=== PATIENT | female | born 1980 | race Caucasian/White ===

== ENCOUNTER 2017-11-16 12:08 | Outpatient (CLI) | payer SELFPAY ==
--- NOTE | 2017-11-16 13:46 | Ultrasound Report ---
ULTRASOUND BIOPHYSICAL PROFILE: History: Nonreactive NST Technique: Transabdominal ultrasound with Doppler interrogation. 2 - breathing movements 2 - movements 2 - posture and tone 2 - Qualitative amniotic fluid volume 8 - TOTAL SCORE OF POSSIBLE 8 Heart Rate (bpm) 129
--- NOTE | 2017-11-16 13:47 | Ultrasound Report ---
ULTRASOUND OB LIMITED History: Nonreactive NST Technique: Transabdominal ultrasound with Doppler interrogation. Gestation: Single Position: Cephalic Amniotic Fluid: Normal CIRO = 15.5 cm Heart Rate: 129 BPM
[2017-11-16 14:27] VITALS: BP 136/69
== END 2017-11-16 14:35 | disposition home or self-care (01) ==
LOC: TRG 12:08 → LD 12:09 → INTOOBSV 12:09 → UNDOADMOB 12:09 → TRG 14:21
PROVIDERS: ATTEND Obstetrics & Gynecology
DX: O47.1 False labor at or after 37 completed weeks of gestation (principal); Z3A.38 38 weeks gestation of pregnancy
CPT/HCPCS: 59025; 76815; 76819

== ENCOUNTER 2017-11-24 18:25 | Inpatient (IN) | payer OTHER ==
[2017-11-24 19:44] LABS: Hematocrit 37.3 % (30.3-42.9); Hemoglobin 12.8 gm/dl (10.1-14.3); Mean Corpuscular HGB Conc 34 % (30-34); Mean Corpuscular Hemoglobin 30 pg (28-32); Mean Corpuscular Volume 87 fl (79-97); Platelet Count 316 K/mm3 (140-440); Red Blood Count 4.31 M/mm3 (3.65-5.03); Red Cell Distribution Width 14.1 % (13.2-15.2)
[2017-11-24 20:01] LABS: Alanine Aminotransferase 7 units/L (7-56)
[2017-11-24 20:20] LABS: Bacteria,Urine 1+ /HPF (Negative); Bilirubin,Urine NEG (Negative); Blood,Urine SM (Negative); Color,Urine Yellow (Yellow); Urobilinogen,Urine < 2.0 mg/dL (<2.0)
[2017-11-24 20:28] LABS: Uric Acid 7.2 mg/dL (3.5-7.6)
[2017-11-24] MEDS ORDERED: BRETHINE SUB-Q PRN (22:17)
[2017-11-24] MEDS ORDERED: ZOFRAN IV PRN (22:17)
[2017-11-24] MEDS ORDERED: BRETHINE IVP PRN (22:17)
[2017-11-24] MEDS ORDERED: MINERAL OIL PO PRN (22:17)
[2017-11-24] MEDS ORDERED: SUBLIMAZE IV PRN (22:17)
[2017-11-24] MEDS ORDERED: NARCAN 0.4 MG/1 ML IV PRN (22:17)
[2017-11-24] MEDS ORDERED: XYLOCAINE 2% INFILTRATI ONE (22:17)
[2017-11-24] MEDS ORDERED: PHENERGAN PO PRN (22:17)
--- NOTE | 2017-11-24 22:28 | History and Physical Report ---
History of Present Illness Date of examination: 11/24/17 Date of admission: 11/24/17 21:11 Chief complaint: Headache, high blood pressure, and regular contractions History of present illness: 37 yo Fe SACHI 11/28/2017 (LMP), 39 weeks 3 days presents to [facility] from office with c/o headache x 3days (not relieved by tylenol), elevated blood pressure, blurry vision and regular contractions. O positive, Rubella immune, GBS negative. Pt initiated care at [facility] at 13w2d. Maternal Obesity, Failed 1hr GTT (3hr GTT wnl). History of UTI tx'd during / All previous pregnancies term. Proven pelvis 8lbs. Past History Past Medical History: other (UTI) Past Surgical History: no surgical history [employer] History: denies: abnormal PAP smear, chlamydia, gonorrhea, hepatitis B, hepatitis C, herpes, HIV, syphilis, trichomonas Family/Genetic History: diabetes (daughter) Social history: no significant social history, single, lives with family, full code. denies: smoking, alcohol abuse, prescription drug abuse, IV drug use - Obstetrical History Expected Date of Delivery: 11/28/17 Actual Gestation: 39 Week(s) 4 Day(s) : 8 Para: 7 Hx # Term Pregnancies: 7 Number of Pregnancies: 0 Spontaneous Abortions: 0 Induced : 0 Number of Living Children: 7 Medications and Allergies Allergies Allergy/AdvReac Type Severity Reaction Status Date / Time No Known Allergies Allergy Verified 11/24/17 19:15 Home Medications Medication Instructions Recorded Confirmed Last Taken Type Vit-Fe Fumar-FA [ 1 tab PO QDAY 11/16/17 11/25/17 11/15/17 09: 00 History Vitamin] 1 Active Meds: Active Medications Ephedrine Sulfate (Ephedrine Sulfate) 10 mg IV Q2M PRN PRN Reason: Hypotension Fentanyl (Sublimaze) 100 mcg IV Q2H PRN PRN Reason: Labor Pain Lactated Ringer's (Lactated Ringers) 1,000 mls @ 125 mls/hr IV DIRECT SALIMA Oxytocin/Sodium Chloride (Pitocin/Ns 20 Unit/1000ml Drip) 20 units in 1,000 mls @ 125 mls/hr IV DIRECT SALIMA Oxytocin/Sodium Chloride (Pitocin/Ns 30 Unit/500ml) 30 units in 500 mls @ 2 mls /hr IV TITR SALIMA; Protocol Lidocaine (Xylocaine 2%) 20 ml INFILTRATI ONCE ONE Stop: 11/24/17 22:18 Mineral Oil (Mineral Oil) 30 ml PO QHS PRN PRN Reason: Constipation Naloxone HCl (Narcan 0.4 Mg/1 Ml) 0.1 mg IV Q2MIN PRN PRN Reason: Res Rate </= 8 or 02 SAT < 92% Ondansetron HCl (Zofran) 4 mg IV Q8H PRN PRN Reason: Nausea And Vomiting Promethazine HCl (Phenergan) 25 mg PO Q6H PRN PRN Reason: Nausea And Vomiting Terbutaline Sulfate (Brethine) 0.25 mg SUB-Q ONCE PRN PRN Reason: Hyperstimulation/Hypertonicity Terbutaline Sulfate (Brethine) 0.25 mg IVP ONCE PRN PRN Reason: Hyperstimulation/Hypertonicity Review of Systems Constitutional: other (Obesity) Eyes: normal appearance, blurred vision (per pt), no loss of peripheral vision, no loss of vision Cardiovascular: high blood pressure (PIH), no chest pain, no shortness of breath Respiratory: no shortness of breath, no pain Breasts: normal Gastrointestinal: no abdominal pain, no nausea, no vomiting, no diarrhea, no constipation Genitourinary: normal appearance, no vaginal discharge, no leakage of fluid, no genital sores, no contractions Integumentary: no rash, no sores, no lesions Neurological: no convulsions, no memory loss, no loss of vision - Vital Signs Vital signs: Vital Signs Pulse BP 60 169/88 11/24/17 19:10 11/24/17 19:10 Temp Pulse Resp BP Pulse Ox 118 H 143/79 11/24/17 22:15 11/24/17 22:15 - Physical Exam Breasts: Positive: normal Cardiovascular: Regular rate, Normal S1, Normal S2, No murmurs Lungs: Positive: Clear to auscultation, Normal air movement Abdomen: Positive: soft, normal bowel sounds, other (Gravid). Negative: distention Genitourinary (Female): Positive: normal external genitalia, normal perenium Vulva: both: normal Vagina: Positive: normal moisture Uterus: Positive: enlarged (Gravid) Extremities: Positive: normal, edema (2+) Deep Tendon Reflex Grade: Normal +2 - Obstetrical FHR: category 1, other (Auditable arrythmia) Cervical Dilatation: 2 (2 inner os, 4.5 outer OS. Per lead programmer) Cervical Effacement Percentage: 70 station: -2 Uterine Contraction Pattern: Irregular Uterine Tone Measurement Phase: Resting Uterine Contraction Intensity: Mild Results Result Diagrams: 11/24/17 19:20 11/24/17 19:20 Abnormal lab results 11/24/17 Range/Units 19:20 Creatinine 0.4 L (0.7-1.2) mg/dL All other labs normal. Assessment and Plan A: Term IUP at 39w3d Grand Multip Headache: 3 days (not relieved by Tylenol) Elevated pressure: PIH labs WNL Blurred Vision Proteinuria Category 1 tracing GBS Negative P: Admit to L&D Routine Labor Orders Pitocin Augmentation Anticipate
[2017-11-24] MEDS ORDERED: LACTATED RINGERS 1,000 ML IV SCH ×2 (23:00)
[2017-11-24] MEDS ORDERED: PITOCin/NS 20 UNIT/1000ML DRIP 20 UNITS/1,000 ML BAG IV SCH (23:00)
[2017-11-25] MEDS ORDERED: PITOCin/NS 30 UNIT/500ML 30 UNITS/500 ML BAG IV SCH (05:00)
--- NOTE | 2017-11-25 07:02 | Progress Note ---
Assessment and Plan A: Term IUP at 39w3d Grand Multip Headache relieved by IV pain med Category 1 tracing GBS Negative P: Continue routine Labor Orders Pitocin started at 2mu Pt may have IV pain med/Epidural PRN Anticipate Subjective - Subjective Date of service: 11/25/17 Principal diagnosis: Term IUP, Multigravida, elevated B/P, labor Interval history: 37 yo Fe SACHI 11/28/2017, 39 weeks 3 days presents to [facility] from office with c/o headache x 3days (not relieved by tylenol), elevated blood pressure, and blurry vision. Pt paul on her own q 3-4 minutes. Patient reports: movement normal, contractions (increasingly more painful) , no vaginal bleeding Objective - Vital Signs Vital Signs: Vital Signs - 12hr 11/24/17 11/24/17 11/24/17 19:10 19:26 19:40 Pulse Rate 60 63 64 Respiratory Rate Blood Pressure 169/88 148/83 158/88 O2 Sat by Pulse Oximetry 11/24/17 11/24/17 11/24/17 20:12 20:25 22:15 Pulse Rate 59 L 59 L 118 H Respiratory Rate Blood Pressure 153/90 158/88 143/79 O2 Sat by Pulse Oximetry 11/24/17 11/24/17 11/24/17 22:55 22:56 23:00 Pulse Rate 63 64 63 Respiratory 18 Rate Blood Pressure O2 Sat by Pulse 95 94 95 Oximetry 11/24/17 11/24/17 11/24/17 23:02 23:05 23:10 Pulse Rate 58 L 57 L 56 L Respiratory Rate Blood Pressure O2 Sat by Pulse 94 98 98 Oximetry 11/24/17 11/24/17 11/24/17 23:15 23:20 23:25 Pulse Rate 67 54 L 59 L Respiratory Rate Blood Pressure O2 Sat by Pulse 98 98 97 Oximetry 11/24/17 11/24/17 11/24/17 23:30 23:35 23:39 Pulse Rate 57 L 59 L 63 Respiratory Rate Blood Pressure O2 Sat by Pulse 99 99 82 L Oximetry 11/24/17 11/24/17 11/24/17 23:40 23:45 23:50 Pulse Rate 57 L 64 56 L Respiratory Rate Blood Pressure O2 Sat by Pulse 94 98 98 Oximetry 0811/25/17 11/25/17 23:55 00:00 00:05 Pulse Rate 56 L 59 L 59 L Respiratory Rate Blood Pressure O2 Sat by Pulse 98 98 99 Oximetry 11/25/17 11/25/17 11/25/17 00:10 00:15 00:20 Pulse Rate 71 62 59 L Respiratory Rate Blood Pressure O2 Sat by Pulse 98 98 98 Oximetry 11/25/17 11/25/17 11/25/17 00:25 00:30 00:35 Pulse Rate 55 L 58 L 61 Respiratory Rate Blood Pressure O2 Sat by Pulse 98 97 98 Oximetry 11/25/17 11/25/17 11/25/17 00:40 00:45 00:50 Pulse Rate 63 72 65 Respiratory Rate Blood Pressure O2 Sat by Pulse 99 99 97 Oximetry 11/25/17 11/25/17 11/25/17 00:55 01:00 01:05 Pulse Rate 63 56 L 66 Respiratory Rate Blood Pressure O2 Sat by Pulse 97 97 97 Oximetry 11/25/17 11/25/17 11/25/17 01:15 01:20 01:25 Pulse Rate 56 L 67 66 Respiratory Rate Blood Pressure 162/79 O2 Sat by Pulse 97 98 98 Oximetry 11/25/17 11/25/17 11/25/17 01:30 01:35 01:40 Pulse Rate 73 72 61 Respiratory Rate Blood Pressure O2 Sat by Pulse 98 99 97 Oximetry 11/25/17 11/25/17 11/25/17 01:45 01:50 01:54 Pulse Rate 60 62 70 Respiratory Rate Blood Pressure O2 Sat by Pulse 96 96 85 Oximetry 11/25/17 11/25/17 11/25/17 01:55 02:00 02:04 Pulse Rate 59 L 61 25 L Respiratory Rate Blood Pressure O2 Sat by Pulse 95 96 86 Oximetry 11/25/17 11/25/17 11/25/17 02:05 02:10 02:15 Pulse Rate 66 66 57 L Respiratory Rate Blood Pressure O2 Sat by Pulse 94 95 95 Oximetry 11/25/17 11/25/17 11/25/17 02:20 02:22 02:25 Pulse Rate 61 85 68 Respiratory Rate Blood Pressure O2 Sat by Pulse 96 92 95 Oximetry 11/25/17 11/25/17 11/25/17 02:28 02:30 02:35 Pulse Rate 59 L 66 80 Respiratory Rate Blood Pressure O2 Sat by Pulse 93 95 95 Oximetry 11/25/17 11/25/17 11/25/17 02:41 02:46 02:47 Pulse Rate 74 62 68 Respiratory Rate Blood Pressure O2 Sat by Pulse 94 97 85 Oximetry 11/25/17 11/25/17 11/25/17 02:51 02:53 03:00 Pulse Rate 74 72 80 Respiratory Rate Blood Pressure O2 Sat by Pulse 97 90 82 L Oximetry 11/25/17 11/25/17 11/25/17 03:01 03:06 03:11 Pulse Rate 59 L 61 64 Respiratory Rate Blood Pressure O2 Sat by Pulse 98 98 97 Oximetry 11/25/17 11/25/17 11/25/17 03:14 03:16 03:21 Pulse Rate 68 85 81 Respiratory Rate Blood Pressure O2 Sat by Pulse 93 95 89 Oximetry 11/25/17 11/25/17 11/25/17 03:26 03:29 03:31 Pulse Rate 70 57 L 66 Respiratory Rate Blood Pressure O2 Sat by Pulse 88 94 95 Oximetry 11/25/17 11/25/17 11/25/17 03:36 03:41 03:46 Pulse Rate 68 62 73 Respiratory Rate Blood Pressure O2 Sat by Pulse 94 96 96 Oximetry 11/25/17 11/25/17 11/25/17 03:49 03:51 03:56 Pulse Rate 59 L 72 65 Respiratory Rate Blood Pressure O2 Sat by Pulse 94 96 97 Oximetry 11/25/17 11/25/17 11/25/17 03:58 04:01 04:12 Pulse Rate 66 60 58 L Respiratory Rate Blood Pressure 142/74 O2 Sat by Pulse 94 96 Oximetry 11/25/17 11/25/17 11/25/17 05:40 05:45 05:50 Pulse Rate 68 84 62 Respiratory Rate Blood Pressure O2 Sat by Pulse 97 98 98 Oximetry 11/25/17 11/25/17 11/25/17 05:55 06:00 06:01 Pulse Rate 70 70 80 Respiratory Rate Blood Pressure O2 Sat by Pulse 97 96 82 L Oximetry 11/25/17 11/25/17 11/25/17 06:05 06:07 06:10 Pulse Rate 68 78 67 Respiratory Rate Blood Pressure O2 Sat by Pulse 94 94 95 Oximetry 11/25/17 11/25/17 11/25/17 06:42 06:44 06:45 Pulse Rate 79 72 62 Respiratory Rate Blood Pressure 147/67 O2 Sat by Pulse 96 92 Oximetry 11/25/17 11/25/17 11/25/17 06:47 06:52 06:57 Pulse Rate 71 80 68 Respiratory Rate Blood Pressure O2 Sat by Pulse 97 97 95 Oximetry 11/25/17 06:59 Pulse Rate 74 Respiratory Rate Blood Pressure O2 Sat by Pulse 94 Oximetry - Exam Breasts: normal Cardiovascular: Regular rate, Normal S1, Normal S2, No murmurs Lungs: Clear to auscultation, Normal air movement Abdomen: Present: normal appearance, soft, normal bowel sounds. Absent: distention Vulva: both: normal Uterus: Present: other (Gravid) Uterine Contraction Monitor Mode: External Cervical Dilatation: 6 (AROM, Lg amt clear fluid) Cervical Effacement Percentage: 90 station: -1 Uterine Contraction Frequency (min): 2-4 Uterine Contraction Pattern: Regular Uterine Tone Measurement Phase: Resting Uterine Contraction Intensity: Moderate Extremities: normal Deep Tendon Reflex Grade: Normal +2 - Labs Labs: Abnormal Labs 11/24/17 19:20 Creatinine 0.4 L Laboratory Results - last 24 hr 11/24/17 11/24/17 11/24/17 19:20 19:20 19:50 WBC 10.1 RBC 4.31 Hgb 12.8 Hct 37.3 MCV 87 MCH 30 MCHC 34 RDW 14.1 Plt Count 316 Creatinine 0.4 L Estimated GFR > 60 Uric Acid 7.2 AST 14 ALT 7 Lactate Dehydrogenase 171 Urine Color Yellow Urine Turbidity Clear Urine pH 7.0 Ur Specific Emerson 1.011 Urine Protein 100 mg/dl Urine Glucose (UA) Neg Urine Ketones Neg Urine Blood Sm Urine Nitrite Neg Urine Bilirubin Neg Urine Urobilinogen < 2.0 Ur Leukocyte Esterase Neg Urine WBC (Auto) 1.0 Urine RBC (Auto) 7.0 U Epithel Cells (Auto) 1.0 Urine Bacteria (Auto) 1+ Blood Type Antibody Screen 11/24/17 22:59 WBC RBC Hgb Hct MCV MCH MCHC RDW Plt Count Creatinine Estimated GFR Uric Acid AST ALT Lactate Dehydrogenase Urine Color Urine Turbidity Urine pH Ur Specific Emerson Urine Protein Urine Glucose (UA) Urine Ketones Urine Blood Urine Nitrite Urine Bilirubin Urine Urobilinogen Ur Leukocyte Esterase Urine WBC (Auto) Urine RBC (Auto) U Epithel Cells (Auto) Urine Bacteria (Auto) Blood Type O POSITIVE Antibody Screen Negative
[2017-11-25] MEDS ORDERED: CYTOTEC ONE (07:35)
--- NOTE | 2017-11-25 08:02 | Procedure Note ---
OB Delivery Note - Delivery Date of Delivery: 11/25/17 Surgeon: WILLOW EDWARDS (ANGELA) Estimated blood loss: 100cc - Vaginal Delivery presentation: vertex (07:43) Delivery position: OA Intrapartum events: none Delivery induction: none Delivery augmentation: rupture of membranes, pitocin Delivery monitor: external FHT, external uterine Route of delivery: Delivery placenta: spontaneous (07:47, intact) Delivery cord: nuchal cord (x1 loose), 3 umbilical vessels Episiotomy: none Delivery laceration: none Anesthesia: none Delivery comments: viable female , MIKI, loose nuchal cord x1 delivered intact via somersualt maneuver at 07:43. Strong lusty cry. to mothers abdomen. Delayed cord clamping. Cut by pt's daughter. Cord blood per hospital protocol. Spontaneous painting delivery of intact placenta at 07:47. FF@U-1. small lochia. No tears or lacerations. EBL 100ml. Infant and mother left in stable condition in L&D. GBS Negative. - A at 1 minute: 8 at 5 minutes: 9 Infant Gender: Female (6lbs 5oz, 2867grams, 19")
[2017-11-25] MEDS ORDERED: ZOFRAN IV PRN (10:00)
[2017-11-25] MEDS ORDERED: DULCOLAX PR PRN (10:00)
[2017-11-25] MEDS ORDERED: BENADRYL PO PRN (10:00)
[2017-11-25] MEDS ORDERED: PHENERGAN PO PRN (10:00)
[2017-11-25] MEDS ORDERED: TYLENOL PO PRN (10:00)
[2017-11-25] MEDS ORDERED: LANSINOH TP PRN (10:00)
[2017-11-25] MEDS ORDERED: TUCKS PAD TP PRN (10:00)
[2017-11-25] MEDS ORDERED: SODIUM CHLORIDE FLUSH SYRINGE 10 ML IV PRN (10:00)
[2017-11-25] MEDS ORDERED: PHENERGAN PR PRN (10:00)
[2017-11-25] MEDS: NORCO 5/325 PO PRN (10:45)
[2017-11-25] MEDS: MOTRIN PO SCH (18:20)
[2017-11-25 19:49] LABS: Hematocrit 35.3 % (30.3-42.9); Hemoglobin 11.8 gm/dl (10.1-14.3)
[2017-11-25] MEDS ORDERED: MILK OF MAGNESIA PO PRN (22:00)
[2017-11-26] MEDS: MOTRIN PO SCH ×2 (02:08→23:12)
--- NOTE | 2017-11-26 10:26 | Progress Note ---
Assessment and Plan A: PPD#1 s/p Bottlefeeding Stable Desires BTL P: Routine PP care Plan discharge home today Depo Provera prior to d/c Subjective - Subjective Principal diagnosis: PPD#1 s/p Interval history: 37 yo Fe SACHI 11/28/2017 (LMP), 39 weeks 3 days presents to [facility] from office with c/o headache x 3days (not relieved by tylenol), elevated blood pressure, blurry vision and regular contractions. O positive, Rubella immune, GBS negative. Pt initiated care at [facility] at 13w2d. Maternal Obesity, Failed 1hr GTT (3hr GTT wnl). History of UTI tx'd during / All previous pregnancies term. Proven pelvis 8lbs. Patient reports: appetite normal, voiding normally, pain well controlled, flatus , ambulating normally, no bowel movement [place]: doing well, bottle feeding Objective - Vital Signs Latest vital signs: Vital Signs Temp Pulse Resp BP 11/26/17 09:29 98.2 F 60 16 106/46 11/26/17 02:08 18 11/25/17 23:30 98.7 F 77 18 101/74 11/25/17 19:30 98.6 F 66 18 108/72 11/25/17 16:30 98.2 F 53 L 20 128/84 Intake and Output 11/25/17 11/26/17 11/26/17 23:59 07:59 15:59 Intake Total 620 Output Total 3 Balance 617 Intake: Oral 320 Intake, Free Water 300 Output: Urine 3 Void 3 Other: Total, Intake Amount 320 Total, Output Amount 3 # Voids Void 600 - Exam Breasts: Present: normal Cardiovascular: Present: Regular rate, Normal S1, Normal S2, No murmurs Lungs: Present: Clear to auscultation, Normal air movement Abdomen: Present: normal appearance, soft, normal bowel sounds. Absent: distention, tenderness Vulva: both: normal Uterus: Present: normal, firm, fundal height at umbilicus Extremities: Present: normal Deep Tendon Reflex Grade: Normal +2
[2017-11-26] MEDS ORDERED: DEPO-PROVERA (CONTRACEPTION) IM NR (10:27)
--- NOTE | 2017-11-26 10:30 | Discharge Summary ---
Providers - Providers Date of Admission: 11/24/17 21:11 Date of discharge: 11/26/17 Attending physician: LAURO FOREMAN MD Primary care physician: LAURO FOREMAN MD Hospitalization Reason for admission: active labor, IUP at term Delivery: Procedure details: See delivery note Episiotomy: none Laceration: none Other procedures: none complications: none Discharge diagnosis: IUP at term delivered [place] baby: female Condition at discharge: Good Disposition: DC-01 TO HOME OR SELFCARE Plan - Provider Discharge Summary Activity: routine, no sex for 6 weeks, no heavy lifting 4 weeks, no strenuous exercise Diet: routine Instructions: routine Additional instructions: [] Smoking cessation referral if applicable(refer to patient education folder for contact #) [] Refer to [facility] Booklet Call your doctor immediately for: * Fever > 100.5 * Heavy vaginal bleeding ( >1 pad per hour) * Severe persistent headache * Shortness of breath * Reddened, hot, painful area to leg or breast * Drainage or odor from incision. * Keep incision clean and dry at all times and follow doctor's instructions regarding bathing/showering Discussed pt's desire for tubal ligation. Instructed pt to returnt o clinic and sign consent. Plan pre-op/tubal in 6 wks. Depo Provera today - Follow up plan
[2017-11-26] MEDS: NORCO 5/325 PO PRN (16:55)
[2017-11-27] MEDS: MOTRIN PO SCH ×2 (05:23→18:35)
[2017-11-27] MEDS: NORCO 5/325 PO PRN (05:23)
[2017-11-27 17:32] VITALS: BP 140/82
== END 2017-11-27 18:35 | disposition home or self-care (01) | DRG 775 ==
LOC: TRG 18:25 → LD 21:11 → OB 11-25 09:33
PROVIDERS: ADMIT Obstetrics & Gynecology; ATTEND Obstetrics & Gynecology
PROC: 10E0XZZ Delivery of Products of Conception, External Approach (ICD-10-PCS; principal; 2017-11-25)
DX: O69.81X0 Labor and delivery complicated by cord around neck, without compression, not applicable or unspecified (principal); Z3A.39 39 weeks gestation of pregnancy; Z37.0 Single live birth; Z83.3 Family history of diabetes mellitus; Z64.1 Problems related to multiparity; O12.14 Gestational proteinuria, complicating childbirth; O75.89 Other specified complications of labor and delivery; R51 Headache
CPT/HCPCS: 36415; 81001; 82565; 83615; 84450; 84460; 84550; 85014; 85018; 85027; 86592; 86850; 86900; 86901; 99211; G0463; J2590; J3010; J7120